=== PATIENT | male | born 1950 | race African-American/Black ===

== ENCOUNTER 2017-01-31 12:24 | Inpatient (IN) | payer MEDICARE, MEDICAID ==
[~2017-01-31] VITALS: Ht 170.2 cm; Wt 89.2 kg
[2017-01-31 13:59] LABS: INR 1.1; PROTHROMBIN TIME 11.4 sec (9.4-11.6)
[2017-01-31 14:05] LABS: BASOPHILS % 0.9 % (0.0-2.0); EOSINOPHILS % 2.7 % (0.0-5.0); HEMATOCRIT. 36.5 % (42.0-52.0); HEMOGLOBIN. 12.1 g/dL (14.0-18.0); LYMPHOCYTES % 35.1 % (20.0-50.0); MEAN CORPUSCULAR HEMOGLOBIN 29.1 pg (28.0-32.0); MEAN CORPUSCULAR VOLUME 87.6 fL (80.0-94.0); MEAN PLATELET VOLUME 8.3 fl (7.4-10.4); MONOCYTES % 8.8 % (2.0-8.0); NEUTROPHILS % 52.5 % (40.0-76.0); PLATELET 166 x1000/uL (130-400); RED BLOOD CELL COUNT 4.16 mill/uL (4.7-6.1); RED CELL DISTRIBUTION WIDTH 14.7 % (11.6-14.6)
[2017-01-31 14:08] LABS: CARBON DIOXIDE 30 mEq/L (21-32); CHLORIDE 106 mEq/L (98-107); TROPONIN I < 0.02 ng/mL (0.00-0.04)
[2017-01-31] MEDS ORDERED: FUROSEMIDE 40MG/4ML VIAL IVP ONE (15:00)
[2017-01-31] MEDS ORDERED: CLONIDINE 0.1MG TABLET PO PRN (15:00)
[2017-01-31] MEDS ORDERED: DOCUSATE SODIUM 100MG CAPSULE PO PRN (15:00)
[2017-01-31] MEDS ORDERED: ACETAMINOPHEN 325MG TABLET PO PRN (15:00)
[2017-01-31] MEDS ORDERED: ONDANSETRON HCL 4MG/2ML VIAL IV PRN (15:00)
[2017-01-31 15:22] LABS: BG BASE EXCESS 4.9 mmol/L (-2.0-2.0); BG CARBOXYHEMOGLOBIN 0.4 % (0.5-1.5); BG DEOXYHEMOGLOBIN 6.6 % (0.0-5.0); BG FRACTION INSPIRED OXYGEN 21; BG HCO3 ACT 30.3 mmol/L (22.0-26.0); BG METHEMOGLOBIN 0.1 % (0.0-1.5); BG OXYGEN SATURATION 93.4 % (92.0-98.5); BG OXYHEMOGLOBIN 92.9 % (94.0-97.0); BG PCO2 48.3 mmHg (35.0-45.0); BG PH 7.416 (7.350-7.450); BG PO2 69.3 mmHg (75.0-100.0); BG SAMPLE SITE RIGHT BRACHIAL; BG TOTAL HEMOGLOBIN 12.6 g/dL (12.0-18.0); BG VENT MODE ROOM AIR
[2017-01-31] MEDS ORDERED: HYDROMORPHONE HCL/PF 2MG/ML CPJ IV PRN (16:00)
[2017-01-31] MEDS ORDERED: TRAMADOL 50MG TABLET PO ONE (16:15)
[2017-01-31 22:25] VITALS: BP 150/86
[2017-01-31] MEDS ORDERED: ZOLPIDEM TARTRATE 5MG TABLET PO PRN (23:00)
[2017-01-31] MEDS ORDERED: CARVEDILOL 25MG TABLET PO NR (23:00)
[2017-01-31] MEDS: HYDRALAZINE HCL 100MG TABLET PO SCH (23:39)
[2017-01-31] MEDS: ATORVASTATIN CALCIUM 20MG TABLET PO SCH (23:39)
[2017-02-01 04:00] VITALS: BP 158/74
[2017-02-01 04:33] LABS: CLARITY URINE CLEAR (CLEAR); COLOR URINE YELLOW (YELLOW); GLUCOSE URINE NEGATIVE (NEGATIVE); KETONES URINE NEGATIVE (NEGATIVE); LEUKOCYTE ESTERASE URINE NEGATIVE (NEGATIVE); NITRITE URINE NEGATIVE (NEGATIVE); OCCULT BLOOD URINE NEGATIVE (NEGATIVE); PROTEIN URINE 2+ (NEGATIVE); SPECIFIC GRAVITY URINE 1.014 (1.005-1.030); UROBILINOGEN URINE 0.2 E.U./dL (0.2-1.0)
[2017-02-01 04:48] LABS: *AMPHETAMINES SCREEN URINE NEGATIVE (NEGATIVE); *BARBITURATES SCREEN URINE NEGATIVE (NEGATIVE); *BENZODIAZEPINES SCREEN URINE NEGATIVE (NEGATIVE); *COCAINE SCREEN URINE NEGATIVE (NEGATIVE); CANNABINOID URINE SCREEN NEGATIVE (NEGATIVE); METHADONE URINE SCREEN NEGATIVE (NEGATIVE); OPIATES URINE SCREEN NEGATIVE (NEGATIVE); PHENCYCLIDINE URINE SCREEN NEGATIVE (NEGATIVE)
[2017-02-01] MEDS: HYDRALAZINE HCL 100MG TABLET PO SCH ×3 (06:40→22:38)
[2017-02-01 07:49] VITALS: BP 114/61
[2017-02-01] MEDS: FUROSEMIDE 40MG/4ML VIAL IVP SCH ×2 (08:41→17:02)
[2017-02-01] MEDS: AMLODIPINE 10MG TABLET PO SCH (08:42)
[2017-02-01] MEDS: CARVEDILOL 25MG TABLET PO SCH ×2 (08:42→22:40)
[2017-02-01] MEDS: ISOSORBIDE MONONITRATE 60MG TABLET SR 24HR PO SCH (08:42)
[2017-02-01] MEDS: ENOXAPARIN 30MG/0.3ML SYR SUBCUT SCH ×2 (08:43→22:38)
[2017-02-01] MEDS ORDERED: POTASSIUM CHLORIDE 10MEQ TABLET SR PO SCH (09:00)
[2017-02-01 09:33] LABS: BASOPHILS % 0.7 % (0.0-2.0); EOSINOPHILS % 1.8 % (0.0-5.0); HEMATOCRIT. 36.6 % (42.0-52.0); HEMOGLOBIN. 12.4 g/dL (14.0-18.0); MEAN CORPUSCULAR HEMOGLOBIN 29.5 pg (28.0-32.0); MEAN CORPUSCULAR VOLUME 87.1 fL (80.0-94.0); MEAN PLATELET VOLUME 8.3 fl (7.4-10.4); MONOCYTES % 8.6 % (2.0-8.0); NEUTROPHILS % 62.9 % (40.0-76.0); PLATELET 163 x1000/uL (130-400); RED CELL DISTRIBUTION WIDTH 14.7 % (11.6-14.6)
[2017-02-01 10:01] LABS: CARBON DIOXIDE 30 mEq/L (21-32); CHLORIDE 105 mEq/L (98-107); TROPONIN I < 0.02 ng/mL (0.00-0.04)
[2017-02-01 12:32] VITALS: BP 89/54
[2017-02-01 16:00] VITALS: BP 111/68
[2017-02-01 20:00] VITALS: BP 118/62
[2017-02-01] MEDS ORDERED: DEXTROSE 50% WATER 50ML SYRINGE IV PRN (21:45)
[2017-02-01] MEDS ORDERED: POTASSIUM CHLORIDE 20MEQ TABLET SR PO NR (22:00)
[2017-02-01] MEDS: ATORVASTATIN CALCIUM 20MG TABLET PO SCH (22:38)
[2017-02-01] MEDS: INSULIN LISPRO 100 UNITS/ML SUBCUT SCH (23:06)
[2017-02-02] VITALS: BP 130/74
[2017-02-02] MEDS: IPRATROPIUM/ALBUTEROL 0.5-3(2.5)MG/3ML NEB INH SCH ×2 (01:21→07:51)
[2017-02-02 04:00] VITALS: BP 116/79
[2017-02-02] MEDS: HYDRALAZINE HCL 100MG TABLET PO SCH (06:00)
[2017-02-02] MEDS: BLOOD SUGAR DIAGNOSTIC STRIP TEST SCH ×2 (06:54→12:19)
[2017-02-02 07:32] LABS: BASOPHILS % 0.5 % (0.0-2.0); EOSINOPHILS % 1.1 % (0.0-5.0); HEMATOCRIT. 34.8 % (42.0-52.0); HEMOGLOBIN. 11.9 g/dL (14.0-18.0); LYMPHOCYTES % 25.3 % (20.0-50.0); MEAN CORPUSCULAR HEMOGLOBIN 29.5 pg (28.0-32.0); MEAN CORPUSCULAR VOLUME 86.4 fL (80.0-94.0); MEAN PLATELET VOLUME 8.6 fl (7.4-10.4); MONOCYTES % 6.1 % (2.0-8.0); PLATELET 169 x1000/uL (130-400); RED BLOOD CELL COUNT 4.03 mill/uL (4.7-6.1); RED CELL DISTRIBUTION WIDTH 14.5 % (11.6-14.6)
[2017-02-02] MEDS: INSULIN LISPRO 100 UNITS/ML SUBCUT SCH ×2 (07:50→13:15)
[2017-02-02 08:15] VITALS: BP 111/60
[2017-02-02] MEDS ORDERED: POTASSIUM CHLORIDE 20MEQ TABLET SR PO SCH (09:00)
[2017-02-02] MEDS: ISOSORBIDE MONONITRATE 60MG TABLET SR 24HR PO SCH (09:00)
[2017-02-02] MEDS: CARVEDILOL 25MG TABLET PO SCH (09:00)
[2017-02-02] MEDS: AMLODIPINE 10MG TABLET PO SCH (09:00)
[2017-02-02] MEDS: FUROSEMIDE 40MG/4ML VIAL IVP SCH (09:11)
[2017-02-02] MEDS: ENOXAPARIN 30MG/0.3ML SYR SUBCUT SCH (09:12)
[2017-02-02 12:34] VITALS: BP 128/74
== END 2017-02-02 13:45 | disposition home or self-care (01) | DRG 291 ==
LOC: ER 12:24 → 6WST 15:00 → EDBEDREQ 15:04 → ENRESERV 19:44 → CANBEDREQ 22:43
PROVIDERS: ADMIT Internal Medicine Nephrology; ATTEND Family Medicine Adult Medicine
DX: I13.0 Hypertensive heart and chronic kidney disease with heart failure and stage 1 through stage 4 chronic kidney disease, or unspecified chronic kidney disease (principal); I50.23 Acute on chronic systolic (congestive) heart failure; E11.22 Type 2 diabetes mellitus with diabetic chronic kidney disease; I42.9 Cardiomyopathy, unspecified; R09.02 Hypoxemia; M25.511 Pain in right shoulder; D64.9 Anemia, unspecified; E87.6 Hypokalemia; N18.9 Chronic kidney disease, unspecified; Z95.810 Presence of automatic (implantable) cardiac defibrillator; Z88.0 Allergy status to penicillin
CPT/HCPCS: 36415; 36600; 71010; 73200; 78582; 80048; 80053; 80305; 81001; 82375; 82805; 82962; 83735; 83880; 84484; 85025; 85610; 87040; 93005; 93306; 93970; 94640; 94664; 96374; 99285; A9558; J1650; J1815; J1940; J7620

== ENCOUNTER → 2018-09-11 | Outpatient (CLI) | payer MEDICARE | END | disposition home or self-care (01) | LOC: RAD 11:58 | PROVIDERS: ATTEND Specialist | DX: I11.0 Hypertensive heart disease with heart failure (principal); I50.9 Heart failure, unspecified; Z95.810 Presence of automatic (implantable) cardiac defibrillator | CPT/HCPCS: 71046 ==

== ENCOUNTER 2019-06-29 13:46 | Emergency (ER) | payer MEDICARE, MEDICAID ==
[~2019-06-29] VITALS: Ht 170.2 cm; Wt 98.0 kg
[~2019-06-29 13:46] MED LIST: AMLO10TA4 MT; CARV12.545 MT; FURO-151 PO; HYDR-4135 MT; POTA-79 MT
[2019-06-29 13:59] VITALS: BP 116/85
== END 2019-06-29 17:00 | disposition left against medical advice (07) ==
LOC: ER 13:46
DX: R06.02 Shortness of breath (principal); Z53.21 Procedure and treatment not carried out due to patient leaving prior to being seen by health care provider
CPT/HCPCS: 82962

== ENCOUNTER 2019-11-12 18:31 | Emergency (ER) | payer MEDICARE, MEDICAID ==
[~2019-11-12] VITALS: Ht 188 cm; Wt 99.0 kg
[2019-11-12 18:40] VITALS: BP 154/98
== END 2019-11-12 19:39 | disposition left against medical advice (07) ==
LOC: ER 18:31
DX: Z53.21 Procedure and treatment not carried out due to patient leaving prior to being seen by health care provider (principal)